=== PATIENT | female | born 1985 | race Caucasian/White ===

== ENCOUNTER 2016-10-15 11:08 | Emergency (ER) | payer MEDICAID ==
[2016-10-15] MEDS ORDERED: NORMAL SALINE 1,000 ML IV ONE (11:23)
[2016-10-15] MEDS ORDERED: PROMETHAZINE HCL 25 MG in DEXTROSE 5 % IN WATER 50 ML IV ONE ×2 (11:23)
--- OUTSIDE RECORDS SUMMARY | 2016-10-15 11:25 | XMS REPORT | Continuity of Care Document ---
:1985 Author Organization [facility] ([facility]) Address [address] [place] [address] Phone [phone] Care Team Providers Name Role Phone Jessica Garcia Primary Care Provider [phone] Source Comments This disclosure is being made pursuant to the Care Everywhere program, applicable federal and state laws, and may not contain all informaitonavailable regarding this patient.[facility] ([facility]) Active Allergies and Adverse Reactions No Known Allergies Current Medications Prescription Sig. Disp. Refills Start Date End Date Status gabapentin 100 mg capsule Take 100 mg by Active mouth 2 times daily. gabapentin 300 mg capsule Take 300 mg by Active mouth daily. Active Problems Problem Noted Date Congenital hydrocephalus 02/21/2015 Supervision of other normal 08/27/2007 Unspecified hypertension antepartum 08/20/2007 Social History Tobacco Use Types Packs/Day Years Used Date Never Smoker Smokeless Tobacco: Never Used Alcohol Use Drinks/Week oz/Week Comments No Last Filed Vital Signs Vital Sign Reading Time Taken Blood Pressure 123/91 01/30/2016 10:36 AM CDT Pulse 62 01/30/2016 10:36 AM CDT Temperature 36.5 C (97.7 F) 01/30/2016 10:36 AM CDT Respiratory Rate - - Height 1.702 m (5' 7.01") 01/30/2016 10:35 AM CDT Weight 145.151 kg (320 lb) 01/30/2016 10:35 AM CDT Body Mass Index 50.11 01/30/2016 10:35 AM CDT Oxygen Saturation - - Plan of Care Health Maintenance Due Date Last Done Comments Hepatitis B Vaccine (1 of 3 - Primary Series) 1985 Tdap Vaccine 12/05/1998 Cervical Cancer Screening 12/05/2005 Lipid Disorder Screening 12/05/2005 MMR Vaccine 12/05/2005 Td Vaccine 12/05/2005 Varicella Vaccine (1 of 2 - Adult - No Evidence of 12/05/2005 Immunity) Influenza Vaccine: Seasonal (#1) 01/09/2016 Results from Last 3 Months Not on file
--- NOTE | 2016-10-15 11:30 | ERNOTE ---
Abdominal HPI - Narrative Date of Service: 10/15/16 - General Chief Complaint: Abdominal Pain Time Seen by Provider: 10/15/16 11:18 Source: patient Exam Limitations: no limitations - Immun/Allergies/Home Medications Immunizatons: IMMUNIZATION HX Immunizations Up to Date Yes History of Influenza Vaccine Yes Allergies/Adverse Reactions: Allergies No Known Allergies Allergy (Verified 10/15/16 11:16) Home Medications: HOME MEDICATIONS Ciprofloxacin HCl [Cipro] 500 mg PO BID #6 tablet 10/15/16 [Last Taken Unknown] Dicyclomine HCl [Bentyl] 10 mg PO Q8H PRN #8 capsule 10/15/16 [Last Taken Unknown] Promethazine HCl [Phenergan] 25 mg PO TID PRN #8 tablet 10/15/16 [Last Taken Unknown] - History of Present Illness Narrative: Patient presents to the ED for vomiting and diarrhea. She has had this for 5 days. She relates non-bloody diarrhea too numerous to count. Vomiting 3-4 times per day. Upper abdominal cramping with this. 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 Has not seen anyone else for this. No fever. She has not seen anyone else for this. Timing: constant Quality: moderate Activities at Onset: none Modifying Factors - (Improves): Present: other - nothing Modifying Factors - (Worsens): Present: other - nothing Associated Symptoms: Present: nausea, vomiting. Absent: headache, diarrhea- gross blood, fever/chills, weakness Prior Treatment: Absent: recently seen Review of Systems - Review of Systems Constitutional: Absent: fever ENT: Present: no symptoms reported Respiratory: Absent: shortness of breath Cardiology: Absent: chest pain Gastrointestinal/Abdominal: Present: See HPI Genitourinary: Absent: dysuria Musculoskeletal: Present: no symptoms reported All Other Systems: All systems neg except as marked - Patient's Past Medical History Patient History - Medical: Chronic Pain, Migraines, Obesity Patient History - Cardiac/Respiratory: No pertinent hx Patient History - Cancer: No Hx of Cancer Patient History - Surgical Procedures: Tubal Ligation, Other - Social History Living Situations: home - Immunizations Immunizations Up to Date: Yes History of Influenza Vaccine: Yes Physical Exam - Physical Exam General Appearance: Present: alert, no apparent distress Eye Exam: Normal inspection: bilateral, PERRL: bilateral Ears, Nose, Throat: Present: normal ENT inspection Neck: Present: normal inspection Respiratory: Present: no respiratory distress, normal breath sounds, no accessory muscle use, lungs clear Cardiovascular/Chest: Present: regular rate, rhythm Gastrointestinal/Abdominal: Present: normal bowel sounds, soft, other - epigastric tenderness to palpation, mild. No low abdominal tenderenss. No guarding or rebound, no peritoneal signs. Back Exam: Present: normal range of motion Extremity Exam: Present: normal inspection Neurological Exam: Present: alert, normal mood/affect, no motor/sensory deficits Skin Exam: Present: normal color, warm/dry. Absent: skin rash ED Progress - Results and Orders Patient's Lab Results:: I have reviewed the patient's lab results. - Vital Signs Patient's Vital Signs:: I have reviewed the patient's vital signs. Vital Signs: Vital Signs 10/15/16 11:13 Temperature 35.7 C L Pulse Rate 84 Respiratory 12 Rate Blood Pressure 151/102 O2 Sat by Pulse 99 Oximetry - Progress/Reassessment Chief Complaint: Abdominal Pain Progress Note-Subjective: 10/15/16 12:51 Patient feeling much improved. Only minimal epigastric tenderness residual. Non-surgical exam. She wishes to go home. Will treat mild UTI. She is having her menses and that is likely the source of the blood. Will cover with 3 days of Cipro. Nothign to suggest dysentery at this time or infectious diarrhea. Nothing to suggest sepsis, toxicity or surgical process. I discussed warning signs and reasons to return as well as the need for close f/u. Departure - Departure Clinical Impression: Vomiting, Diarrhea, UTI (urinary tract infection) Disposition: Home self-care Condition: Stable Instructions: Nausea, Adult, Diarrhea, Adult, [id number] Additional Instructions: Rest. Clear liquids next 24 hours. Follow-up with your doctor in 2 days for a re-check. Return for fever, increased pain, blood in stool or if your condition worsens or changes in any way. Referrals: Jessica Garica MD [Primary Care Provider] - Prescriptions: Ciprofloxacin HCl [Cipro] 500 mg PO BID #6 tablet Dicyclomine HCl [Bentyl] 10 mg PO Q8H PRN #8 capsule PRN Reason: Pain Promethazine HCl [Phenergan] 25 mg PO TID PRN #8 tablet PRN Reason: Nausea
[2016-10-15 11:39] LABS: Hematocrit 41.2 % (37.0-47.0); Hemoglobin 14.1 gm/dL (12.5-16.0); Mean Cell Volume 81.4 fl (78-100); Mean Corpuscular Hemoglobin 27.9 pg (27-31); Mean Corpuscular Hgb Conc 34.2 g/dl (32-36); Mean Platelet Volume 9.5 fl (6.0-9.5); Neutrophil # 2.4 K/mm3 (1.3-6.0); Neutrophil % 58.9 % (42-75.0); Platelet Count 171 K/mm3 (150-450); Red Blood Count 5.06 M/mm3 (4.2-5.4); Red Cell Distribution Width 13.1 % (11.5-14.0)
[2016-10-15 11:56] LABS: Albumin * 3.7 gm/dl (3.4-5.0); Anion Gap 12.6 mmol/L (6.8-13.8); BUN/Creatinine Ratio 8.5 (9.0-21.6); Bilirubin, Total 0.7 mg/dL (0.0-1.1); Ca. Corrected For Albumin 8.6 mg/dL (8.4-10.2); Calcium * 8.7 mg/dL (7.9-10.9); Carbon Dioxide 26.8 mmol/L (24-32.6); Potassium 3.4 mmol/L (3.4-4.6); Total Protein 7.3 gm/dL (6.2-8.2)
[2016-10-15 12:35] LABS: Urine Bilirubin Negative (NEGATIVE); Urine Blood 250 /ul (NEGATIVE); Urine Ketone Negative (NEGATIVE); Urine Nitrite Negative (NEGATIVE); Urine Protein Negative (NEGATIVE); Urine Urobilinogen Normal (NORMAL)
[2016-10-15 12:45] LABS: Urine Appearance Slightly Cloudy; Urine Bacteria 1+; Urine Color Yellow; Urine RBC >50 /hpf (0-5); Urine WBC TRACE /hpf (0-5)
[2016-10-15 14:07] VITALS: BP 134/85
== END 2016-10-15 13:15 | disposition home or self-care (01) ==
LOC: ER 11:08
DX: R11.10 Vomiting, unspecified (principal); R19.7 Diarrhea, unspecified; N39.0 Urinary tract infection, site not specified

== ENCOUNTER 2016-11-01 15:50 | Emergency (ER) | payer MEDICAID ==
[2016-11-01 16:10] VITALS: BP 159/95
[2016-11-01] MEDS ORDERED: diphenhydrAMINE HCL 50 MG/ML VIAL IM ONE (17:39)
[2016-11-01] MEDS ORDERED: METOCLOPRAMIDE HCL 5 MG/ML VIAL IM ONE (17:39)
--- NOTE | 2016-11-01 17:45 | ERNOTE ---
Headache ER HPI - General Presenting Symptoms: headache Time Seen by Provider: 11/01/16 17:29 Source: patient Exam Limitations: no limitations - Immun/Allergies/Home Medications Immunizations: IMMUNIZATION HX Immunizations Up to Date Yes History of Influenza Vaccine Yes Hx Pneumococcal Vaccination No Allergies/Adverse Reactions: Allergies No Known Allergies Allergy (Verified 11/01/16 16:07) - History of Present Illness Narrative: Patient has a history of headache that she was seen by the neurologist for. She was diagnosed with 'pressure' headaches and treated with medications that made her headaches manageable to where it occurs about twice a week and resolved with medications within two hours. She had vomiting and diarrhea two weeks ago for multiple days, requiring IV fluids. She had a self diagnosed sinus infection last week that resolved with over the counter medications. Four days ago she started with a left frontal headache that has not resolved inspite of taking her usual headache medications, denies injury, no vomiting, no fever, no neuro deficit Timing of Headache: gradual Severity Maximum: Present: severe Headache frequency: Present: frequent headaches. Absent: similar to previous headache Exacerbated by:: Denies: light, noise, movement Prior Treament: Reports: recently seen Review of Systems - Review of Systems Constitutional: Present: recent illness. Absent: fever, chills EYE: Absent: double vision ENT: Absent: nose congestion, sore throat Respiratory: Absent: shortness of breath Cardiology: Absent: chest pain Gastrointestinal/Abdominal: Absent: nausea, vomiting, diarrhea, abdominal pain Genitourinary: Present: no symptoms reported Musculoskeletal: Absent: neck pain Skin: Absent: rash Neurological: Present: See HPI, headache. Absent: weakness, numbness - Patient's Past Medical History Patient History - Medical: Chronic Pain, Migraines, Obesity Patient History - Cardiac/Respiratory: No pertinent hx Patient History - Cancer: No Hx of Cancer Patient History - Surgical Procedures: Tubal Ligation, Other LMP (females 10-50): 3 weeks - Social History Living Situations: home Psych History: No pertinent hx - Immunizations Immunizations Up to Date: Yes Hx Pneumococcal Vaccination: No History of Influenza Vaccine: Yes Physical Exam - Physical Exam General Appearance: Present: wd/wn, alert, no apparent distress, obese Eye Exam: Normal inspection: bilateral, PERRL: bilateral, EOMI: bilateral Ears, Nose, Throat: Present: normal ENT inspection, normal pharynx Neck: Present: normal inspection, nontender, supple, full range of motion Respiratory: Present: no respiratory distress, normal breath sounds, no accessory muscle use, lungs clear Cardiovascular/Chest: Present: regular rate, rhythm, no murmur Neurological Exam: Present: alert, oriented, normal mood/affect, no motor/ sensory deficits Skin Exam: Present: normal color, warm/dry ED Progress - Vital Signs Patient's Vital Signs:: I have reviewed the patient's vital signs. Vital Signs: Vital Signs 11/01/16 16:08 Temperature 37.6 C H Pulse Rate 83 Respiratory 16 Rate Blood Pressure 159/95 O2 Sat by Pulse 98 Oximetry - Progress/Reassessment Chief Complaint: Headache Progress Note-Subjective: 11/01/16 17:44 discussed testing vs symptomatic treatment with patient, as normal exam and no red flags she prefers to hold off on testing but treat symptoms for now 11/01/16 18:25 headache much better after reglan and benadryl Departure Clinical Impression: Headache Qualifiers: Headache type: unspecified Headache chronicity pattern: acute headache Intractability: not intractable Qualified Code(s): R51 - Headache - Departure Disposition: Home self-care Condition: Good Instructions: Recurrent Migraine Headache, [id number] Referrals: Jessica Garcia MD [Primary Care Provider] -
--- OUTSIDE RECORDS SUMMARY | 2016-11-01 17:46 | XMS REPORT | Continuity of Care Document ---
:1985 Author Organization [facility] ([facility]) Address [address] [place] [address] Phone [phone] Care Team Providers Name Role Phone Jessica Garcia Primary Care Provider [phone] Source Comments This disclosure is being made pursuant to the Care Everywhere program, applicable federal and state laws, and may not contain all informaitonavailable regarding this patient.[facility] ([facility]) Active Allergies and Adverse Reactions No Known [...] Evidence of 12/05/2005 Immunity) Influenza Vaccine: Seasonal (Season Ended) 2017 Results from Last 3 Months Not on file
[2016-11-01] MEDS ORDERED: METOCLOPRAMIDE HCL 5 MG/ML VIAL ONE (17:55)
[2016-11-01] MEDS ORDERED: diphenhydrAMINE HCL 50 MG/ML VIAL ONE (17:55)
== END 2016-11-01 18:28 | disposition home or self-care (01) ==
LOC: ER 15:50
DX: R51 Headache (principal)